=== PATIENT | male | born 1975 | race Caucasian/White ===

== ENCOUNTER 2016-12-04 00:48 | Observation (INO) | payer SELFPAY ==
[~2016-12-04] VITALS: Ht 170.2 cm; Wt 96.2 kg
--- NOTE | 2016-12-04 19:08 | ER ---
ADMIT: 12/04/2016 RM/LOC: 315 [facility] MR#: [id number] [address] [address] [place] [address] Emergency Room Report SEX: M AGE: 41 : 1975 DATE: 12/04/2016 HISTORY OF PRESENT ILLNESS: The patient is a 41-year-old male with a past medical history of anxiety, schizophrenia, seizure disorder, on multiple medications, was brought to the ER because of the altered mental status. Allegedly, the patient slumped over a table and was drowsy. They denied any head trauma. Allegedly, the patient took 71 pills of cyclobenzaprine during the last 5 days. There is no evidence of taking other medications and overdosing on other medications. PHYSICAL EXAMINATION: GENERAL: In the ER, the patient has closed eyes, opens with pains and sometimes moans with the pain and avoids the pain, but he is nonverbal and does not answer the questions. VITAL SIGNS: The patient had normal vitals, afebrile, pupils are 3 mm, reactive to light bilaterally. EXTREMITIES: The patient moves all extremities. There are no obvious signs of trauma. LABORATORY AND X-RAY DATA: Fingerstick blood sugar was normal. EKG showed prolonged QT corrected. The patient's Tylenol level was 2.3, salicylate 3.5, WBC 14 with hemoglobin of 10.8, and platelets of 280,000. Sodium of 140 with potassium of 4.1. Urine tox was negative and UA was normal. Alcohol level was negative, and CK was 186 with creatinine of 2.1. CT scan of the brain did not show any acute changes, read by myself. Chest x-ray was questionable of infiltrate versus underinflation, not full inspiration. The patient had increased creatinine of 2.1. EMERGENCY DEPARTMENT COURSE: The patient was observed, received IV fluid 1 L in the ER for acute kidney injury. We have no information about consumption of other medications, but prolonged QT could be related to the psychiatric and psychotic medications. Family Medicine was consulted and patient was admitted for altered mental status, question overdose and acute kidney injury for further followups and treatments. London Nunes MD/ sagar JOB #: [id number] CC: Derek Avila MD, Attending Physician Derek Avila MD, Family Physician
[2016-12-05] MEDS ORDERED: OXY IR DPS10 MG PO (10:10)
[2016-12-05] MEDS ORDERED: AMBIEN DPS10 MG PO (10:10)
[2016-12-05] MEDS ORDERED: CYMBALTA DPS60 MG PO (10:10)
[2016-12-05] MEDS ORDERED: TOPIRAMATE100 MG PO (10:11)
[2016-12-05] MEDS ORDERED: LAMICTAL200 MG PO (10:11)
[2016-12-05] MEDS ORDERED: BUSPAR DPS15 MG PO (10:11)
[2016-12-05] MEDS ORDERED: QUETIAPINE FUMA50 MG PO (10:12)
[2016-12-05] MEDS ORDERED: FLEXERIL-DPS10 MG PO (10:12)
[2016-12-05] MEDS ORDERED: ZESTRIL DPS40 MG PO (10:13)
[2016-12-05] MEDS ORDERED: OMEPRAZOLE40 MG PO (10:13)
[2016-12-05] MEDS ORDERED: DESYREL DPS100 MG PO (10:13)
[2016-12-05] MEDS ORDERED: LATUDA60 MG PO (10:13)
[2016-12-05] MEDS ORDERED: MONTELUKAST SOD10 MG PO (10:14)
[2016-12-05] MEDS ORDERED: NORVASC5 MG PO (10:14)
[2016-12-05] MEDS ORDERED: MOBIC DPS7.5 MG PO (10:14)
[2016-12-05] MEDS ORDERED: HYDROCHLOROTHIA25 MG PO (10:14)
[2016-12-05] MEDS ORDERED: FOLIC ACID1 MG PO (10:15)
[2016-12-05] MEDS ORDERED: ZOFRAN4 MG PO (10:15)
--- NOTE | 2016-12-07 13:33 | HP ---
ADMIT: 12/04/2016 RM/LOC: 315 [facility] MR#: [id number] [address] [address] [place] [address] History and Physical SEX: M AGE: 41 : 1975 DATE OF SERVICE: CHIEF COMPLAINT: Apparent accidental overdose of Flexeril and multiple psych medications. HISTORY OF PRESENT ILLNESS: Mr. Mcknight is a very nice 41-year-old, male with a long psychiatric history. Apparently, earlier this year he had been released from [facility] and is currently working as a cook at [employer]. He is on extensive list of medications outlined below. He states that he accidentally took three Flexeril along with some of the other psych medications and a pain pill last night, and became very sedated. He was brought to the emergency room, apparently by friends and staff from [facility]. He had stable vital signs, was quite obtunded. His lab work showed a creatinine bumped up to 2.1, hemoglobin 8.8. Drug screen was negative. He was admitted for observation to ICU. PAST MEDICAL HISTORY: Early development was apparently normal. The patient denies any serious childhood illnesses. His medical history includes schizoaffective disorder, and bipolar disorder. He has chronic sleep disturbance and chronic pain syndrome. He has problems with recurrent muscle spasms. He has a history of gastroesophageal reflux disease, hypertension, and allergic rhinitis. PAST SURGICAL HISTORY: His previous operations include: 1. Carpal tunnel syndrome. 2. Umbilical hernia repair. 3. Vasectomy. 4. Dental extractions. CURRENT MEDICATIONS: Include: 1. Oxycodone 10 mg q.12 hours p.r.n. 2. Duloxetine 60 mg daily. 3. Ambien 10 mg at bedtime. 4. Buspirone 15 mg t.i.d. 5. Topiramate 100 mg at bedtime (apparent history of seizures). 6. Lamotrigine 200 mg daily. 7. Cyclobenzaprine 10 mg q.8 hours. 8. Quetiapine 50 mg b.i.d. 9. Latuda 120 mg daily. 10.Trazodone 200 mg at bedtime. 11.Omeprazole 40 mg daily. 12.Lisinopril 40 mg daily. 13.Amlodipine 5 mg daily. 14.Singulair 10 mg at bedtime. 15.Hydrochlorothiazide 25 mg q.a.m. 16.Meloxicam 75 mg daily. 17.Zofran 4 mg q.4 hours p.r.n. 18.Folic acid 2 mg daily. ADMIT: 12/04/2016 RM/LOC: 315 [facility] MR#: [id number] [address] [address] [place] [address] History and Physical SEX: M AGE: 41 : 1975 ALLERGIES: THERE ARE NO ALLERGIES REPORTED. SOCIAL HISTORY: He is a heavy smoker. Reports not using alcohol. FAMILY HISTORY: Positive for psychiatric illness. REVIEW OF SYSTEMS: Otherwise, essentially negative. He has had no recent illnesses, and his 10-point review of systems is negative but for the current issues. PHYSICAL EXAMINATION: GENERAL: He is a bit sedated, but awakens very easily and answers questions appropriately. He denies any distress or other symptoms. VITAL SIGNS: Blood pressures have been in the 140 systolic range with pulse in the 90s. He is afebrile. HEENT: He has poor dentition. NECK: Reasonably supple. CHEST: Clear. CARDIAC: Regular without murmur. ABDOMEN: Soft without mass or tenderness. EXTREMITIES: Lower extremities show no edema. GENITAL AND RECTAL: Exam was not done. NEUROLOGIC: Normal within his ability to test. IMPRESSION: 1. Apparent accidental overdose-Flexeril and psych medications. 2. Ongoing nicotine addiction. 3. Schizoaffective disorder. 4. Bipolar disorder. 5. Hypertension. 6. Chronic pain syndrome. 7. History of seizure disorder. 8. Chronic gastroesophageal reflux disease. 9. Allergic rhinitis. PLAN: We will observe him later into the day and if he gets back to his baseline, we will let him go home to follow up with [facility] and [facility]. Reviewed this with Tara and nursing staff. I think Tara is comfortable with this approach. Derek Avila MD/ sagar JOB #: [id number] CC: Derek Avila, Attending Physician Derek Avila, Family Physician
== END 2016-12-04 14:50 | disposition home or self-care (01) ==
LOC: ER 00:48 → 3ICU 04:00
PROVIDERS: ADMIT Family Medicine
DX: T48.1X1A Poisoning by skeletal muscle relaxants [neuromuscular blocking agents], accidental (unintentional), initial encounter (principal); N17.9 Acute kidney failure, unspecified; F41.9 Anxiety disorder, unspecified; F20.9 Schizophrenia, unspecified; G40.909 Epilepsy, unspecified, not intractable, without status epilepticus; K21.9 Gastro-esophageal reflux disease without esophagitis; I10 Essential (primary) hypertension; G89.4 Chronic pain syndrome; F17.200 Nicotine dependence, unspecified, uncomplicated; F31.9 Bipolar disorder, unspecified; J30.9 Allergic rhinitis, unspecified; Z79.899 Other long term (current) drug therapy; Z79.891 Long term (current) use of opiate analgesic; Z98.890 Other specified postprocedural states

== ENCOUNTER → 2017-02-21 | Outpatient (CLI) | payer OTHER ==
[~2017-02-21] MED LIST: AMBIEN DPS10 MG PO; BUSPAR DPS15 MG PO; CYMBALTA DPS60 MG PO; DESYREL DPS100 MG PO; FLEXERIL-DPS10 MG PO; FOLIC ACID1 MG PO; HYDROCHLOROTHIA25 MG PO; LAMICTAL200 MG PO; LATUDA60 MG PO; MOBIC DPS7.5 MG PO; MONTELUKAST SOD10 MG PO; NORVASC5 MG PO; OMEPRAZOLE40 MG PO; OXY IR DPS10 MG PO; QUETIAPINE FUMA50 MG PO; TOPIRAMATE100 MG PO; ZESTRIL DPS40 MG PO; ZOFRAN4 MG PO
== END | disposition home or self-care (01) ==
LOC: PTH.S 02-15 07:30
DX: I10 Essential (primary) hypertension (principal)